=== PATIENT | female | born 1955 | race African-American/Black ===

== ENCOUNTER 2017-06-08 09:14 | Emergency (ER) | payer MEDICAID ==
[~2017-06-08] VITALS: Ht 154.9 cm; Wt 130.0 kg
[~2017-06-08 09:14] MED LIST: ACET-3161 PO; AMLO10TA80 PO; ASPI-1158 PO; FAMO40TA7 PO; FURO40TA5 PO; METO25TA6 PO; NITR0.4T SL; POTA8TAB8 PO; SIMV10TA6 PO
[2017-06-08 10:50] VITALS: BP 168/60
== END 2017-06-08 13:00 | disposition home or self-care (01) ==
LOC: ER 12:12
DX: L50.9 Urticaria, unspecified (principal); I10 Essential (primary) hypertension; E66.9 Obesity, unspecified; M25.552 Pain in left hip; E78.00 Pure hypercholesterolemia, unspecified; Z79.82 Long term (current) use of aspirin
CPT/HCPCS: 73502; 99284

== ENCOUNTER 2019-11-06 08:57 | Inpatient (IN) | payer MEDICAID ==
[~2019-11-06] VITALS: Ht 154.9 cm; Wt 128.4 kg
[~2019-11-06 08:57] MED LIST changes: -SIMV10TA6 PO; +SIMV10TA97 PO
[2019-11-06] MEDS ORDERED: MECLIZINE 25MG TABLET PO ONE (10:00)
[2019-11-06 11:29] LABS: BASOPHILS % 0.5 % (0.0-2.0); HEMATOCRIT. 39.9 % (36.0-48.0); HEMOGLOBIN. 13.5 g/dL (12.0-16.0); LYMPHOCYTES % 19.7 % (20.0-50.0); MEAN CORPUSCULAR VOLUME 91.8 fL (81.0-99.0); MEAN PLATELET VOLUME 8.1 fl (7.4-10.4); MONOCYTES % 6.2 % (2.0-8.0); NEUTROPHILS % 71.6 % (40.0-76.0); PLATELET 292 x1000/uL (130-400); RED BLOOD CELL COUNT 4.35 mill/uL (4.2-5.4); RED CELL DISTRIBUTION WIDTH 13.7 % (11.6-14.6)
[2019-11-06 11:30] LABS: CHLORIDE 105 mEq/L (98-107)
[2019-11-06 12:04] LABS: CLARITY URINE CLEAR (CLEAR); COLOR URINE YELLOW (YELLOW); KETONES URINE NEGATIVE (NEGATIVE); LEUKOCYTE ESTERASE URINE NEGATIVE (NEGATIVE); NITRITE URINE NEGATIVE (NEGATIVE); OCCULT BLOOD URINE NEGATIVE (NEGATIVE); PROTEIN URINE NEGATIVE (NEGATIVE); SPECIFIC GRAVITY URINE 1.006 (1.005-1.030)
[2019-11-06] MEDS ORDERED: ONDANSETRON HCL 4MG/2ML INJ IV ONE (13:00)
[2019-11-06] MEDS ORDERED: ASPIRIN 81MG TABLET PO ONE (13:00)
[2019-11-07 01:04] VITALS: BP 167/83
[2019-11-07] MEDS ORDERED: CLONIDINE 0.1MG TABLET PO PRN (03:45)
[2019-11-07] MEDS ORDERED: ACETAMINOPHEN 500MG TABLET PO PRN (03:45)
[2019-11-07] MEDS ORDERED: ONDANSETRON HCL 4MG/2ML INJ IV PRN (03:45)
[2019-11-07 04:00] VITALS: BP 152/80
[2019-11-07 08:00] VITALS: BP 112/67
[2019-11-07] MEDS ORDERED: MELO-106 MT (09:24)
[2019-11-07 10:27] LABS: BASOPHILS % 0.4 % (0.0-2.0); EOSINOPHILS % 2.8 % (0.0-5.0); HEMATOCRIT. 39.4 % (36.0-48.0); HEMOGLOBIN. 13.2 g/dL (12.0-16.0); LYMPHOCYTES % 25.5 % (20.0-50.0); MEAN CORPUSCULAR HEMOGLOBIN 30.9 pg (28.0-32.0); MEAN CORPUSCULAR VOLUME 91.9 fL (81.0-99.0); MEAN PLATELET VOLUME 8.5 fl (7.4-10.4); MONOCYTES % 7.1 % (2.0-8.0); NEUTROPHILS % 64.2 % (40.0-76.0); PLATELET 286 x1000/uL (130-400); RED BLOOD CELL COUNT 4.28 mill/uL (4.2-5.4); RED CELL DISTRIBUTION WIDTH 13.9 % (11.6-14.6)
[2019-11-07 10:32] LABS: CHLORIDE 105 mEq/L (98-107)
[2019-11-07 12:00] VITALS: BP 121/75
[2019-11-07] MEDS ORDERED: NITROGLYCERIN 0.4MG TABLET SL SL PRN (15:00)
[2019-11-07] MEDS ORDERED: ACETAMINOPHEN WITH CODEINE 300/30MG TABLET PO PRN (15:00)
[2019-11-07] MEDS ORDERED: NON FORMULARY PATIENT HOME MED XX SCH (15:00)
[2019-11-07] MEDS: AMLODIPINE 10MG TABLET PO SCH (16:01)
[2019-11-07] MEDS: POTASSIUM CHLORIDE 8 MEQ TABLET.SA PO SCH (16:01)
[2019-11-07] MEDS: ASPIRIN 81MG TABLET PO SCH (16:01)
[2019-11-07] MEDS: METOPROLOL TARTRATE 25MG TABLET PO SCH (16:01)
[2019-11-07] MEDS: FAMOTIDINE 20MG TABLET PO SCH (16:01)
[2019-11-07 16:08] VITALS: BP_SYST 129; BP_SYST 132; BP_SYST 134; BP_DIAS 68; BP_DIAS 76; BP_DIAS 81
[2019-11-07 20:00] VITALS: BP 148/81
[2019-11-07] MEDS ORDERED: ATORVASTATIN CALCIUM 10MG TABLET PO SCH (21:00)
[2019-11-08] VITALS: BP 120/65
[2019-11-08 04:00] VITALS: BP 142/69
[2019-11-08] MEDS ORDERED: MELOXICAM 7.5MG TABLET PO SCH (09:00)
[2019-11-08] MEDS ORDERED: FUROSEMIDE 40MG TABLET PO SCH (09:00)
[2019-11-08 09:26] VITALS: BP 143/82
[2019-11-08] MEDS: ASPIRIN 81MG TABLET PO SCH (10:28)
[2019-11-08] MEDS: POTASSIUM CHLORIDE 8 MEQ TABLET.SA PO SCH (10:28)
[2019-11-08] MEDS: METOPROLOL TARTRATE 25MG TABLET PO SCH (10:29)
[2019-11-08] MEDS: AMLODIPINE 10MG TABLET PO SCH (10:29)
[2019-11-08] MEDS: FAMOTIDINE 20MG TABLET PO SCH (10:31)
== END 2019-11-08 11:05 | disposition home or self-care (01) | DRG 111 ==
LOC: ER 08:57 → 6WST 14:35 → ENRESERV 22:20
PROVIDERS: ADMIT Internal Medicine; ATTEND Internal Medicine
DX: R42 Dizziness and giddiness (principal); E66.01 Morbid (severe) obesity due to excess calories; I10 Essential (primary) hypertension; M19.90 Unspecified osteoarthritis, unspecified site; Z86.73 Personal history of transient ischemic attack (TIA), and cerebral infarction without residual deficits; Z68.43 Body mass index [BMI] 50.0-59.9, adult; Z79.899 Other long term (current) drug therapy; Z79.82 Long term (current) use of aspirin; Z98.891 History of uterine scar from previous surgery
CPT/HCPCS: 36415; 80048; 80053; 80061; 81003; 84484; 85025; 93005; 99285; J2405; J8597

== ENCOUNTER 2022-05-17 13:53 | Emergency (ER) | payer MEDICARE, MEDICAID ==
[~2022-05-17] VITALS: Ht 165.1 cm; Wt 150.0 kg
[~2022-05-17 13:53] MED LIST changes: -ASPI-1158 PO; +ASPI-1406 PO; +MELO-106 MT
[2022-05-17] MEDS ORDERED: SODIUM CHLORIDE 0.9% 1,000 ML IV ONE (16:00)
[2022-05-17] MEDS ORDERED: MECLIZINE 25MG TABLET PO ONE (16:00)
[2022-05-17] MEDS ORDERED: ONDANSETRON HCL 4MG/2ML INJ IV ONE (16:00)
[2022-05-17 16:48] LABS: BASOPHILS % 0.2 % (0.0-2.0); EOSINOPHILS % 0.8 % (0.0-5.0); HEMATOCRIT. 39.8 % (36.0-48.0); HEMOGLOBIN. 13.2 g/dL (12.0-16.0); LYMPHOCYTES % 11.4 % (20.0-50.0); MEAN CORPUSCULAR HEMOGLOBIN 30.9 pg (28.0-32.0); MEAN CORPUSCULAR VOLUME 92.9 fL (81.0-99.0); MEAN PLATELET VOLUME 8.3 fl (7.4-10.4); NEUTROPHILS % 82.6 % (40.0-76.0); PLATELET 271 x1000/uL (130-400); RED BLOOD CELL COUNT 4.28 mill/uL (4.2-5.4); RED CELL DISTRIBUTION WIDTH 13.4 % (11.6-14.6)
[2022-05-17 17:06] LABS: INR 1.1; PROTHROMBIN TIME 11.5 sec (9.6-11.0)
[2022-05-17 17:32] LABS: CHLORIDE 109 mEq/L (98-107)
[2022-05-17] MEDS ORDERED: MECL-159 MT (19:08)
[2022-05-17 19:12] VITALS: BP 147/85
== END 2022-05-17 19:13 | disposition home or self-care (01) ==
LOC: ER 14:05
DX: R42 Dizziness and giddiness (principal); I10 Essential (primary) hypertension; Z79.899 Other long term (current) drug therapy; Z98.890 Other specified postprocedural states
CPT/HCPCS: 36415; 70450; 80053; 85025; 85610; 86850; 86900; 86901; 93005; 96361; 96374; 99285; J2405; J7030; J8597

== ENCOUNTER → 2023-06-19 | Outpatient (CLI) | payer MEDICARE, MEDICAID ==
[~2023-06-19] MED LIST changes: +MECL-159 MT
== END | disposition home or self-care (01) ==
LOC: US 08:28
PROVIDERS: ATTEND Internal Medicine Gastroenterology
DX: R16.0 Hepatomegaly, not elsewhere classified (principal); K44.9 Diaphragmatic hernia without obstruction or gangrene; K29.70 Gastritis, unspecified, without bleeding
CPT/HCPCS: 76700

== ENCOUNTER 2024-12-21 09:37 | Emergency (ER) | payer MEDICARE, OTHER ==
[~2024-12-21] VITALS: Ht 154.9 cm; Wt 121.1 kg
[~2024-12-21 09:37] MED LIST changes: -ACET-3161 PO; +CARV3.1242 MT; -FAMO40TA7 PO; +FURO20TA4 MT; -FURO40TA5 PO; +MAGN400T26 MT; -MECL-159 MT; -MELO-106 MT; -METO25TA6 PO; -NITR0.4T SL; +POTA8CAP20 MT; -POTA8TAB8 PO
[2024-12-21 09:38] VITALS: O2SAT 97
[2024-12-21 10:37] LABS: CHLORIDE 103 mEq/L (98-107); POTASSIUM 3.7 mEq/L (3.5-5.1); SODIUM 139 mEq/L (136-145)
[2024-12-21 10:38] LABS: CARBON DIOXIDE 30 mEq/L (21-32)
[2024-12-21 10:39] LABS: CALCIUM 9.8 mg/dL (8.7-10.4)
[2024-12-21 10:43] LABS: CREATININE 0.7 mg/dL (0.6-1.0); GLUCOSE 149 mg/dL (70-105); UREA NITROGEN BLOOD 6 mg/dL (9-23)
[2024-12-21 10:45] LABS: BASOPHILS % 0.3 % (0.0-2.0); EOSINOPHILS % 3.1 % (0.0-5.0); HEMATOCRIT. 39.7 % (36.0-48.0); LYMPHOCYTES % 27.9 % (20.0-50.0); MEAN CORPUSCULAR HEMOGLOBIN 30.9 pg (28.0-32.0); MEAN CORPUSCULAR HGB CONC 32.8 g/dL (31.0-37.0); MEAN CORPUSCULAR VOLUME 94.2 fL (81.0-99.0); MONOCYTES % 6.4 % (2.0-8.0); NEUTROPHILS % 62.3 % (40.0-76.0); PLATELET 271 x1000/uL (130-400); RED BLOOD CELL COUNT 4.22 mill/uL (4.2-5.4); WHITE BLOOD COUNT 5.5 x1000/uL (4.5-11.0)
[2024-12-21 10:46] LABS: TROPONIN I HIGH SENSITIVITY 7 ng/L (3.0-34)
[2024-12-21] MEDS: CLONIDINE 0.1MG TABLET PO ONE (10:51)
[2024-12-21 11:57] VITALS: BP 159/87; PULSE 77; RESP 18; TEMP 37.1; O2SAT 98
== END 2024-12-21 12:03 | disposition home or self-care (01) ==
LOC: ER 09:37
DX: I11.0 Hypertensive heart disease with heart failure (principal); I50.9 Heart failure, unspecified; F41.9 Anxiety disorder, unspecified; M19.90 Unspecified osteoarthritis, unspecified site; Z79.82 Long term (current) use of aspirin; Z79.899 Other long term (current) drug therapy; Z98.890 Other specified postprocedural states
CPT/HCPCS: 36415; 71045; 80048; 84484; 85025; 93005; 99285

== ENCOUNTER 2024-12-29 23:48 | Emergency (ER) | payer MEDICARE, OTHER ==
[~2024-12-29] VITALS: Ht 154.9 cm; Wt 120.0 kg
[2024-12-30] VITALS: O2SAT 96
[2024-12-30 00:04] VITALS: BP 158/82; PULSE 90; RESP 18; TEMP 37.1; O2SAT 100
[2024-12-30 01:35] LABS: CHLORIDE 106 mEq/L (98-107); SODIUM 139 mEq/L (136-145)
[2024-12-30 01:36] LABS: CALCIUM 9.6 mg/dL (8.7-10.4); CARBON DIOXIDE 26 mEq/L (21-32)
[2024-12-30 01:41] LABS: CREATININE 0.8 mg/dL (0.6-1.0); GLUCOSE 168 mg/dL (70-105); UREA NITROGEN BLOOD 7 mg/dL (9-23)
[2024-12-30 01:42] LABS: TROPONIN I HIGH SENSITIVITY 5 ng/L (3.0-34)
[2024-12-30 03:27] LABS: BASOPHILS % 0.4 % (0.0-2.0); EOSINOPHILS % 2.8 % (0.0-5.0); HEMATOCRIT. 38.7 % (36.0-48.0); HEMOGLOBIN. 13.1 g/dL (12.0-16.0); LYMPHOCYTES % 24.3 % (20.0-50.0); MEAN CORPUSCULAR HEMOGLOBIN 31.5 pg (28.0-32.0); MEAN CORPUSCULAR HGB CONC 33.8 g/dL (31.0-37.0); MEAN CORPUSCULAR VOLUME 93.3 fL (81.0-99.0); MEAN PLATELET VOLUME 8.7 fl (7.4-10.4); MONOCYTES % 5.5 % (2.0-8.0); PLATELET 258 x1000/uL (130-400); RED BLOOD CELL COUNT 4.15 mill/uL (4.2-5.4); RED CELL DISTRIBUTION WIDTH 13.6 % (11.6-14.6); WHITE BLOOD COUNT 6.2 x1000/uL (4.5-11.0)
== END 2024-12-30 05:21 | disposition left against medical advice (07) ==
LOC: ER 23:57
DX: R07.89 Other chest pain (principal); F41.9 Anxiety disorder, unspecified; I11.0 Hypertensive heart disease with heart failure; I50.9 Heart failure, unspecified; M19.90 Unspecified osteoarthritis, unspecified site
CPT/HCPCS: 36415; 71045; 80048; 84484; 85025; 93005; 99285

== ENCOUNTER 2025-03-05 18:59 | Inpatient (IN) | payer MEDICARE, OTHER ==
[~2025-03-05] VITALS: Ht 170.2 cm; Wt 121.1 kg
[~2025-03-05 18:59] MED LIST changes: +CLOP-31 PO; +ISOS20TA8 PO; +LIP40 PO; +MECL-299 PO; -SIMV10TA97 PO
[2025-03-05] MEDS: LABETALOL 5MG/ML 4ML INJ IV ONE (20:12)
[2025-03-05 20:34] LABS: BASOPHILS % 0.5 % (0.0-2.0); EOSINOPHILS % 2.6 % (0.0-5.0); HEMATOCRIT. 37.8 % (36.0-48.0); HEMOGLOBIN. 12.5 g/dL (12.0-16.0); LYMPHOCYTES % 23.8 % (20.0-50.0); MEAN CORPUSCULAR HEMOGLOBIN 31.2 pg (28.0-32.0); MEAN CORPUSCULAR HGB CONC 33.2 g/dL (31.0-37.0); MEAN CORPUSCULAR VOLUME 94.1 fL (81.0-99.0); MEAN PLATELET VOLUME 8.3 fl (7.4-10.4); MONOCYTES % 6.8 % (2.0-8.0); NEUTROPHILS % 66.3 % (40.0-76.0); PLATELET 235 x1000/uL (130-400); RED BLOOD CELL COUNT 4.02 mill/uL (4.2-5.4); RED CELL DISTRIBUTION WIDTH 14.2 % (11.6-14.6); WHITE BLOOD COUNT 4.8 x1000/uL (4.5-11.0)
[2025-03-05 20:41] LABS: CHLORIDE 109 mEq/L (98-107); POTASSIUM 3.5 mEq/L (3.5-5.1); SODIUM 143 mEq/L (136-145)
[2025-03-05 20:42] LABS: CARBON DIOXIDE 27 mEq/L (21-32)
[2025-03-05 20:43] LABS: CALCIUM 9.3 mg/dL (8.7-10.4)
[2025-03-05 20:46] LABS: INR 1.1; PARTIAL THROMBOPLASTIN TIME 24.5 sec (23.4-31.0); PROTHROMBIN TIME 11.4 sec (9.6-11.0)
[2025-03-05 20:48] LABS: CREATININE 0.8 mg/dL (0.6-1.0); GLUCOSE 129 mg/dL (70-105); UREA NITROGEN BLOOD 6 mg/dL (9-23)
[2025-03-05 20:50] LABS: TROPONIN I HIGH SENSITIVITY 29 ng/L (3.0-34)
[2025-03-05] MEDS ORDERED: ACETAMINOPHEN 325MG TABLET PO PRN (22:30)
[2025-03-05] MEDS ORDERED: HYDRALAZINE 20MG/ML VIAL IV PRN (22:30)
[2025-03-05] MEDS ORDERED: IPRATROPIUM/ALBUTEROL 0.5-3(2.5)MG/3ML NEB NEB PRN (22:30)
[2025-03-05] MEDS ORDERED: CLONIDINE 0.1MG TABLET PO PRN (22:30)
[2025-03-05] MEDS ORDERED: HYDROCODONE/ACETAMINOPHEN 5/325MG TABLET PO PRN (22:30)
[2025-03-05] MEDS ORDERED: MORPHINE SULFATE 2 MG/ML INJ (NOT FOR IM USE) IV PRN (22:30)
[2025-03-05] MEDS ORDERED: ONDANSETRON HCL 4MG/2ML INJ IV PRN (22:30)
[2025-03-05] MEDS ORDERED: ZOLPIDEM TARTRATE 5MG TABLET PO PRN (22:30)
[2025-03-05] MEDS ORDERED: MECLIZINE 25MG TABLET PO PRN (22:45)
[2025-03-05] MEDS ORDERED: NALOXONE HCL 0.4MG/ML VIAL IV PRN (23:00)
[2025-03-06] VITALS (7 sets, daily range): BP systolic 128–185; BP diastolic 60–83; PULSE 76–98; RESP 18–20; TEMP 36.1–36.5; O2SAT 95–99
[2025-03-06 06:52] LABS: BASOPHILS % 0.3 % (0.0-2.0); EOSINOPHILS % 3.1 % (0.0-5.0); HEMATOCRIT. 37.6 % (36.0-48.0); HEMOGLOBIN. 12.7 g/dL (12.0-16.0); LYMPHOCYTES % 29.8 % (20.0-50.0); MEAN CORPUSCULAR HEMOGLOBIN 31.3 pg (28.0-32.0); MEAN CORPUSCULAR HGB CONC 33.8 g/dL (31.0-37.0); MEAN CORPUSCULAR VOLUME 92.7 fL (81.0-99.0); MEAN PLATELET VOLUME 8.7 fl (7.4-10.4); MONOCYTES % 6.7 % (2.0-8.0); NEUTROPHILS % 60.1 % (40.0-76.0); PLATELET 245 x1000/uL (130-400); RED BLOOD CELL COUNT 4.06 mill/uL (4.2-5.4); WHITE BLOOD COUNT 4.5 x1000/uL (4.5-11.0)
[2025-03-06 07:02] LABS: CARBON DIOXIDE 29 mEq/L (21-32); CHLORIDE 107 mEq/L (98-107); POTASSIUM 3.4 mEq/L (3.5-5.1); SODIUM 144 mEq/L (136-145)
[2025-03-06 07:03] LABS: CALCIUM 9.8 mg/dL (8.7-10.4)
[2025-03-06 07:08] LABS: CREATININE 0.7 mg/dL (0.6-1.0); GLUCOSE 108 mg/dL (70-105); UREA NITROGEN BLOOD 6 mg/dL (9-23)
[2025-03-06 07:11] LABS: TROPONIN I HIGH SENSITIVITY 120 ng/L (3.0-34)
[2025-03-06] MEDS: PANTOPRAZOLE SODIUM 40 MG/VIAL IV SCH (10:43)
[2025-03-06] MEDS: ENOXAPARIN 30MG/0.3ML SYR SUBCUT SCH (10:43)
[2025-03-06] MEDS: CLOPIDOGREL 75MG TABLET PO SCH (10:43)
[2025-03-06] MEDS: AMLODIPINE 10MG TABLET PO SCH (10:44)
[2025-03-06] MEDS: ISOSORBIDE DINITRATE 20MG TABLET PO SCH (10:44)
[2025-03-06] MEDS: MAGNESIUM OXIDE 400MG TABLET PO SCH (10:45)
[2025-03-06] MEDS: ASPIRIN 81MG EC TABLET PO SCH (10:45)
[2025-03-06] MEDS: CARVEDILOL 3.125 MG TABLET PO SCH (10:45)
[2025-03-06] MEDS: POTASSIUM CHLORIDE 10MEQ TABLET SR PO SCH (10:45)
[2025-03-06] MEDS: FUROSEMIDE 20MG TABLET PO SCH (10:46)
[2025-03-06 18:15] LABS: TROPONIN I HIGH SENSITIVITY 44 ng/L (3.0-34)
[2025-03-06] MEDS: ATORVASTATIN CALCIUM 40MG TABLET PO SCH (21:08)
[2025-03-07] VITALS: BP 150/81; PULSE 96; RESP 20; TEMP 36.6; O2SAT 96
[2025-03-07 00:33] LABS: TROPONIN I HIGH SENSITIVITY 36 ng/L (3.0-34)
[2025-03-07 03:37] VITALS: BP 133/75; PULSE 78; RESP 20; TEMP 36.2; O2SAT 100
[2025-03-07 07:54] LABS: CHLORIDE 106 mEq/L (98-107); POTASSIUM 3.8 mEq/L (3.5-5.1); SODIUM 142 mEq/L (136-145)
[2025-03-07 07:55] LABS: CALCIUM 9.8 mg/dL (8.7-10.4); CARBON DIOXIDE 30 mEq/L (21-32)
[2025-03-07 08:00] VITALS: BP 138/75; PULSE 87; RESP 18; TEMP 36.9; O2SAT 100
[2025-03-07 08:00] LABS: GLUCOSE 124 mg/dL (70-105); UREA NITROGEN BLOOD 11 mg/dL (9-23)
[2025-03-07 08:50] LABS: BASOPHILS % 0.4 % (0.0-2.0); EOSINOPHILS % 3.9 % (0.0-5.0); HEMATOCRIT. 38.5 % (36.0-48.0); HEMOGLOBIN. 13.1 g/dL (12.0-16.0); LYMPHOCYTES % 33.4 % (20.0-50.0); MEAN CORPUSCULAR HEMOGLOBIN 31.8 pg (28.0-32.0); MEAN CORPUSCULAR VOLUME 93.5 fL (81.0-99.0); MEAN PLATELET VOLUME 8.8 fl (7.4-10.4); MONOCYTES % 5.1 % (2.0-8.0); NEUTROPHILS % 57.2 % (40.0-76.0); PLATELET 285 x1000/uL (130-400); RED BLOOD CELL COUNT 4.11 mill/uL (4.2-5.4); RED CELL DISTRIBUTION WIDTH 13.9 % (11.6-14.6); WHITE BLOOD COUNT 3.9 x1000/uL (4.5-11.0)
[2025-03-07 10:13] VITALS: BP 138/75; PULSE 87; TEMP 98.4; O2SAT 100
== END 2025-03-07 11:15 | disposition home or self-care (01) | DRG 280 ==
LOC: ER 19:15 → EDBEDREQ 19:27 → ENRESERV 22:04 → 7WST 22:55
PROVIDERS: ADMIT Internal Medicine; ATTEND Internal Medicine
DX: I11.0 Hypertensive heart disease with heart failure (principal); I50.33 Acute on chronic diastolic (congestive) heart failure; I21.A1 Myocardial infarction type 2; I16.1 Hypertensive emergency; I25.10 Atherosclerotic heart disease of native coronary artery without angina pectoris; E78.5 Hyperlipidemia, unspecified; E11.9 Type 2 diabetes mellitus without complications; F41.9 Anxiety disorder, unspecified; B19.20 Unspecified viral hepatitis C without hepatic coma; I25.2 Old myocardial infarction; Z98.61 Coronary angioplasty status
CPT/HCPCS: 36415; 71045; 80048; 82962; 83880; 84484; 85025; 93005; 93970; 99291; A4606; J0360; J1650; J2470; J3490